=== PATIENT | female | born 1975 | race African-American/Black ===

== ENCOUNTER 2023-09-24 14:31 | Emergency (ER) | payer OTHER ==
[~2023-09-24] VITALS: Ht 162.6 cm; Wt 77.3 kg
[2023-09-24 14:42] VITALS: TEMP 98
[2023-09-24] MEDS ORDERED: MOTRIN 800800 MG/TAB PO ×2 (16:46)
[2023-09-24] MEDS ORDERED: FLEXERIL 1010 MG/TAB PO (16:50)
[2023-09-24 17:30] VITALS: BP 121/72; PULSE 58
== END 2023-09-24 17:30 | disposition home or self-care (01) ==
LOC: COL.ER 14:31
DX: S09.90XA Unspecified injury of head, initial encounter (principal); S13.4XXA Sprain of ligaments of cervical spine, initial encounter; S33.5XXA Sprain of ligaments of lumbar spine, initial encounter; S80.12XA Contusion of left lower leg, initial encounter; S80.11XA Contusion of right lower leg, initial encounter; M85.60 Other cyst of bone, unspecified site; Z91.040 Latex allergy status; V89.2XXA Person injured in unspecified motor-vehicle accident, traffic, initial encounter; Y92.410 Unspecified street and highway as the place of occurrence of the external cause
CPT/HCPCS: J2270